=== PATIENT | male | born 1985 | race Caucasian/White ===

== ENCOUNTER 2021-05-03 11:36 | Outpatient (REF) | payer SELFPAY ==
[2021-05-03 13:11] LABS: Binax Now Covid-19 Ag Negative (Negative)
[2021-05-03 13:12] LABS: Binax Internal Control QC Valid; Binax Lot number: 9864
== END 2021-05-03 11:37 | disposition home or self-care (01) ==
LOC: HO.LAB 11:36
PROVIDERS: Visit Provider Internal Medicine
DX: Z20.822 Contact with and (suspected) exposure to COVID-19 (principal)
CPT/HCPCS: 36415; C9803